=== PATIENT | female | born 1985 | race Caucasian/White ===

== ENCOUNTER 2022-11-08 15:39 | Outpatient (CLI) | payer OTHER | END 2022-11-08 16:26 | disposition home or self-care (01) | LOC: NST 15:39 | PROVIDERS: ATTEND Obstetrics & Gynecology Maternal & Fetal Medicine | DX: Z34.83 Encounter for supervision of other normal pregnancy, third trimester (principal) ==

== ENCOUNTER 2022-11-14 15:15 | Outpatient (CLI) | payer OTHER | END 2022-11-14 17:32 | disposition home or self-care (01) | LOC: NST 15:15 | PROVIDERS: ATTEND Obstetrics & Gynecology Maternal & Fetal Medicine | DX: Z34.83 Encounter for supervision of other normal pregnancy, third trimester (principal) ==

== ENCOUNTER 2022-11-22 12:45 | Outpatient (CLI) | payer OTHER | END 2022-11-22 14:23 | disposition home or self-care (01) | LOC: NST 12:45 | PROVIDERS: ATTEND Obstetrics & Gynecology | DX: Z34.83 Encounter for supervision of other normal pregnancy, third trimester (principal) ==

== ENCOUNTER 2022-11-29 12:51 | Outpatient (CLI) | payer OTHER | END 2022-11-29 14:06 | disposition home or self-care (01) | LOC: NST 12:51 | PROVIDERS: ATTEND Obstetrics & Gynecology Gynecology | DX: Z34.83 Encounter for supervision of other normal pregnancy, third trimester (principal) ==

== ENCOUNTER 2022-12-04 14:15 | Inpatient (IN) | payer OTHER ==
[~2022-12-04] VITALS: Ht 165.1 cm; Wt 92.5 kg
[2022-12-04] MEDS ORDERED: PRENATAL TABLE1 EAC1 PO (14:58)
== END 2022-12-07 14:39 | disposition home or self-care (01) | DRG 807 ==
LOC: LDR 14:15 → OB/GYN 12-05 13:58
PROVIDERS: ADMIT Obstetrics & Gynecology; ATTEND Obstetrics & Gynecology
PROC: 4A1HXCZ Monitoring of Products of Conception, Cardiac Rate, External Approach (ICD-10-PCS; 2022-12-04)
PROC: 10E0XZZ Delivery of Products of Conception, External Approach (ICD-10-PCS; principal; 2022-12-05)
DX: O99.824 Streptococcus B carrier state complicating childbirth (principal); Z37.0 Single live birth; Z3A.37 37 weeks gestation of pregnancy; Z20.822 Contact with and (suspected) exposure to COVID-19